=== PATIENT | female | born 1960 | race Hispanic/Latino ===

== ENCOUNTER 2017-10-17 22:38 | Observation (INO) | payer OTHER ==
[~2017-10-17] VITALS: Ht 154.9 cm; Wt 100.5 kg
[~2017-10-17 22:38] MED LIST: ALBUTEROL SULF8.5 GM IN; AMLODIPINE BESYL5 MG PO
[2017-10-18 00:28] LABS: BASOPHILS % 0.5 % (0.0-1.0); EOSINOPHILS # (AUTO) 0.5 (0.0-0.4); EOSINOPHILS % 5.6 % (0.0-6.0); HEMATOCRIT 35.7 % (34.2-44.1); HEMOGLOBIN 12.4 g/dL (12.0-16.0); LYMPHOCYTES # (AUTO) 2.2 (1.0-3.2); LYMPHOCYTES % 27.4 % (18.0-39.1); MEAN CORPUSCULAR HEMOGLOBIN 31.2 pg (28-32); MEAN CORPUSCULAR HGB CONC 34.7 g/dL (31-35); MEAN CORPUSCULAR VOLUME 89.7 fL (81-99); MONOCYTES # (AUTO) 0.6 (0.2-0.8); MONOCYTES % 7.6 % (4.4-11.3); NEUTROPHILS # (AUTO) 4.7 (2.1-6.9); NEUTROPHILS % 58.7 % (38.7-80.0); PLATELET COUNT 212 x10e3/uL (140-360); RED BLOOD COUNT 3.98 x10e6/uL (3.6-5.1); RED CELL DISTRIBUTION WIDTH 12.1 % (11.7-14.4)
[2017-10-18 00:30] LABS: PROTHROMBIN TIME 12.4 seconds (11.9-14.5)
[2017-10-18 00:31] LABS: PARTIAL THROMBOPLASTIN TIME 28.4 seconds (23.8-35.5)
[2017-10-18 00:35] LABS: CLARITY,URINE CLEAR (CLEAR); COLOR,URINE YELLOW (YELLOW)
[2017-10-18 00:36] LABS: BACTERIA,URINE FEW /HPF; BILIRUBIN,URINE NEGATIVE (NEGATIVE); EPITHELIAL CELLS,URINE MODERATE /LPF; KETONES,URINE NEGATIVE (NEGATIVE); LEUKOCYTE ESTERASE ,URINE NEGATIVE (NEGATIVE); NITRITE,URINE NEGATIVE (NEGATIVE); PROTEIN,URINE DIPSTICK NEGATIVE (NEGATIVE); RBC,URINE 0-5 /HPF (0-5); URINE UROBILINOGEN 0.2 mg/dL (0.2 - 1); WBC,URINE (MAN) 0-5 /HPF (0-5)
[2017-10-18 00:40] LABS: ALANINE AMINOTRANSFERASE 54 IU/L (0-55); ALBUMIN/GLOBULIN RATIO 1.1 (0.8-2.0); ALKALINE PHOSPHATASE 79 IU/L (40-150); BLOOD UREA NITROGEN 9 mg/dL (7-26); BUN/CREATININE RATIO 10 (6-25); CALCIUM 9.3 mg/dL (8.4-10.2); CARBON DIOXIDE 23 mmol/L (22-29); CHLORIDE 105 mmol/L (98-107); CREATINE KINASE 85 IU/L (29-168); CREATININE, SERUM 0.92 mg/dL (0.57-1.11); EST GLOMERULAR FILTRATION RATE > 60 ML/MIN (60-); GLUCOSE 224 mg/dL (74-118); MAGNESIUM 1.9 MG/DL (1.3-2.1); SODIUM 139 mmol/L (136-145)
[2017-10-18] MEDS ORDERED: ONDANSETRON HCL INJ 2 MG/ML VIAL IV PRN (02:15)
--- NOTE | 2017-10-18 02:18 | Diagnostic Imaging Report ---
CHEST 2 VIEWS, Technique: CHEST 2 VIEWS Comparison: 06/16/2015, 01/24/2015 Clinical history: Chest pain DISCUSSION: Stable appearance of the heart, mediastinum, lungs, and pleural spaces, within normal limits. Note the costophrenic angles are partially excluded on frontal view. IMPRESSION: No acute abnormality Signed by: Dr Vandana Pavon MD on 10/18/2017 2:14 AM
[2017-10-18] MEDS ORDERED: KETOROLAC TROMETHAMINE 30 MG/ML VIAL IV STA (02:47)
[2017-10-18] MEDS ORDERED: LOSARTAN POTASS25 MG PO (03:49)
[2017-10-18] MEDS ORDERED: LEVOTHYROXINE50 MCG PO (03:52)
[2017-10-18] MEDS ORDERED: GLIMEPIRIDE2 MG PO (03:52)
[2017-10-18 04:01] VITALS: BP 153/82
[2017-10-18 04:20] VITALS: BP 153/82
[2017-10-18 08:00] VITALS: BP 144/86
[2017-10-18 08:03] LABS: CREATINE KINASE 80 IU/L (29-168)
[2017-10-18 08:11] VITALS: BP 144/86
[2017-10-18] MEDS ORDERED: FAMOTIDINE 20 MG/2 ML VIAL IV SCH (09:00)
[2017-10-18] MEDS ORDERED: ASPIRIN 81 MG ENTERIC COATED PO SCH (09:00)
--- NOTE | 2017-10-18 10:58 | History and Physical ---
Ms. Chadwick is a complex, morbidly obese, 57-year-old woman who presented to the emergency room overnight with a complaint of chest discomfort. HISTORY OF PRESENT ILLNESS: The patient reports that she has these problems intermittently. She is not sure if they may have to do with asthma or injections that she gets for asthma but that she has some discomfort across her entire chest. It is worse with deep breathing. The patient reports that she also gets feelings at night that her arms and legs are tingling. PAST MEDICAL HISTORY: Significant for hypertension, diabetes, hypothyroidism and asthma. She reports having hepatitis C. MEDICATIONS: She reports that she gets weekly injections from Dr. Doe of a medicine called [employer]. Also at home she takes medications of amlodipine daily, glimepiride 4 mg daily, levothyroxine 175 mcg daily, albuterol inhaler. PAST SURGICAL HISTORY: She has had cholecystectomy, hysterectomy, and appendectomy. She had a colonoscopy with Dr. Varner at [facility] on January 27, 2015. SOCIAL HISTORY: She does not smoke or drink. REVIEW OF SYSTEMS: Cardiac: She has no knowledge of any cardiac problem. PHYSICAL EXAMINATION GENERAL: Exam at this time shows a pleasant, morbidly obese, woman. She is alert, oriented and conversant. She is recorded as 5 feet 1 inch tall, weighing 221 pounds. VITAL SIGNS: Blood pressure reported as 144/86. HEENT: Unremarkable. NECK: No jugular venous distention. Neck is thick. THORAX: Chest wall is tender to palpation all across the precordium. CARDIOVASCULAR: Heart sounds S1, S2 are equal. No murmurs. RESPIRATORY: Faint end-expiratory wheezing. ABDOMEN: Markedly protuberant. EXTREMITIES: No cyanosis, clubbing or edema. EKG is normal. Troponins are normal x2. Reported glucoses range from 180 to 224. Her chest x-ray is unremarkable. ASSESSMENT 1. Chest wall pain, etiology not clear. 2. Asthma. 3. Morbid obesity. 4. Type-2, adult-onset diabetes. 5. Hypertension. PLAN: Will perform a stress test for her today. She is currently given analgesics. Further management will be based on clinical course. Job#: [id number] cc:MD KINGA ELLISON MD
[2017-10-18] MEDS ORDERED: ALBUTEROL SULFATE HFA 8GM INHALATION AEROSOL INH SCH (11:00)
[2017-10-18 11:50] VITALS: BP 154/80
--- NOTE | 2017-10-18 13:53 | Discharge Summary ---
HISTORY OF PRESENT ILLNESS: Ms. Chadwick is a complex 57-year-old woman who presented to the emergency room with a complaint of chest discomfort. HOSPITAL COURSE: The patient was found to have chest discomfort on palpation by the emergency room doctor and myself with normal cardiac enzymes and normal electrocardiogram. She is known to have asthma, hypertension and diabetes. Patient performed exercise stress test with Nando protocol on the morning of the , which was negative for any ischemia nor arrhythmia and normal blood pressure response. She is advised to take Advil or her Tylenol for her chest wall discomfort. She adds that she has had a mammogram within the last year and she is advised to get routine mammograms. She will follow up with Dr. Jerez and Dr. Amin as outpatient for further management of musculoskeletal chest wall pain, asthma and diabetes and hypertension. PAN AU MD Job#: [id number] cc:MARIANA JEREZ MD cc:KINGA AMIN MD
[2017-10-19] MEDS ORDERED: LOSARTAN POTASSIUM 25 MG TAB PO SCH (09:00)
[2017-10-19] MEDS ORDERED: AMLODIPINE BESYLATE 5 MG TAB PO SCH (09:00)
[2017-10-19] MEDS ORDERED: GLIMEPIRIDE 2 MG TAB PO SCH (09:00)
[2017-10-19] MEDS ORDERED: LEVOTHYROXINE SODIUM 25 MCG TABLET PO SCH (09:00)
== END 2017-10-18 11:45 | disposition home or self-care (01) ==
LOC: ER 22:38 → ERHOLD 10-18 02:12 → IMCU 10-18 03:10
PROVIDERS: ADMIT Internal Medicine Cardiovascular Disease; ATTEND Internal Medicine Cardiovascular Disease
DX: R07.89 Other chest pain (principal); E66.01 Morbid (severe) obesity due to excess calories; I10 Essential (primary) hypertension; E11.9 Type 2 diabetes mellitus without complications; E03.9 Hypothyroidism, unspecified; J45.909 Unspecified asthma, uncomplicated; B19.20 Unspecified viral hepatitis C without hepatic coma; Z68.41 Body mass index [BMI] 40.0-44.9, adult
CPT/HCPCS: 36415; 71046; 80053; 81001; 82550; 82553; 82948; 83735; 83880; 84484; 85025; 85610; 85730; 87086; 93005; 93017; 99284; G0378; J1885